=== PATIENT | female | born 2000 | race Hispanic/Latino ===

== ENCOUNTER 2021-09-08 17:16 | Emergency (ER) | payer OTHER ==
[2021-09-08] MEDS ORDERED: Acetaminophen 500 MG TAB ONE (19:03)
[2021-09-08] MEDS ORDERED: Ketorolac Tromethamine 30 MG/ML VIAL ONE (19:03)
[2021-09-08 19:15] LABS: Bilirubin Neg (Negative); Blood, Urine 10 (Negative); Clarity Clear (Clear); Glucose, Urine (Dipstick) Normal (Negative); Ketone, Urine Negative (Negative); Leukocyte Negative (Negative); Nitrite Negative (Negative); Protein, Urine (Dipstick) Negative (Neg-Trace); Specific Gravity, Urine 1.015 (1.002-1.036); Urobilinogen Normal mg/dL (Less than 2)
[2021-09-08 19:19] LABS: Pregnancy Test - Urine (BHCG) Negative (Negative); Pregu Control Background? CLEAR/WHITE (CLR/WHITE); Pregu Control Bar Appear? YES (CONTROL BAR); Specific Gravity 1.015 (1.002-1.036)
[2021-09-08 19:24] LABS: Squamous Epithelial 0-3 HPF (0-3)
[2021-09-08 19:25] LABS: Bacteria/HPF Rare-Few HPF (None Seen); RBC/HPF 0-3 HPF (0-3); WBC/HPF 0-3 HPF (0-3)
== END 2021-09-08 19:29 | disposition home or self-care (01) ==
LOC: CSHERS 17:16
DX: R51.9 Headache, unspecified (principal); M54.50 Low back pain, unspecified; G89.29 Other chronic pain; W21.00XA Struck by hit or thrown ball, unspecified type, initial encounter; Y92.79 Other farm location as the place of occurrence of the external cause
CPT/HCPCS: 81003; 81015; 81025; 96372; 99284; J1885

== ENCOUNTER 2022-01-20 16:57 | Emergency (ER) | payer OTHER | END 2022-01-20 18:46 | disposition home or self-care (01) | LOC: CSHERS 16:57 | DX: R51.9 Headache, unspecified (principal) | CPT/HCPCS: 99283 ==

== ENCOUNTER 2022-05-07 15:18 | Emergency (ER) | payer OTHER ==
[2022-05-07 17:24] LABS: Bilirubin Neg (Negative); Blood, Urine 10 (Negative); Clarity Cloudy (Clear); Glucose, Urine (Dipstick) Normal (Negative); Ketone, Urine Negative (Negative); Leukocyte Negative (Negative); Nitrite Negative (Negative); Protein, Urine (Dipstick) 15 mg/dl (Neg-Trace); Specific Gravity, Urine 1.025 (1.005-1.030); Urobilinogen Normal mg/dL (Less than 2)
[2022-05-07 17:28] LABS: Pregnancy Test - Urine (BHCG) POSITIVE (Negative); Pregu Control Background? CLEAR/WHITE (CLR/WHITE); Pregu Control Bar Appear? YES (CONTROL BAR); Specific Gravity 1.025 (1.002-1.036)
[2022-05-07 17:38] LABS: Mucous/LPF 3+ LPF (<2+); RBC/HPF 0-3 HPF (0-3); WBC/HPF 0-3 HPF (0-3)
[2022-05-07 17:39] LABS: Bacteria/HPF 1+ HPF (None Seen)
[2022-05-07 18:21] LABS: #Basophils 0.1 10x3/uL (0.0-0.2); #Eosinphils 0.4 10x3/uL (0.0-0.5); #Neutrophils 9.8 10x3/uL (1.5-8.4); %Basophils 0.5 % (0.0-2.0); %Eosinophils 2.9 % (0.0-6.0); %Lymphocytes 22.1 % (18.0-47.0); %Monocytes 6.8 % (0.0-10.0); %Neutrophils 67.4 % (40.0-75.0); Mean Corpuscular HGB CONC 31.9 g/dL (32.0-36.0); Mean Corpuscular Hemoglobin 27.7 pg (27.0-33.0); Mean Corpuscular Volume 86.6 fl (81.6-98.3); Mean Platelet Volume 8.6 fl (7.4-10.4); Platelet Count 452 10x3/uL (150-450); RBC Distribution Width 14.7 % (11.5-14.5); White Blood Cell (WBC) Count 14.6 10x3/uL (3.5-10.5)
[2022-05-07 18:36] LABS: ALT (SGPT) 20 U/L (8-55); AST (SGOT) 15 U/L (5-34); Albumin 3.8 g/dL (3.5-5.0); Alkaline Phosphatase 71 U/L (40-110); Anion Gap 11 mmol/L (10-20); BUN (Urea Nitrogen) 10 mg/dL (7.0-18.7); Bilirubin, Total 0.4 mg/dL (0.2-1.2); Calc. Creatinine Clearance 0 mL/min (70-130); Calcium 9.6 mg/dL (7.8-10.44); Carbon Dioxide 24 mmol/L (22-29); Chloride 104 mmol/L (98-107); Estimated GFR 118; Globulin 4.6 g/dL (2.4-3.5); Glucose 81 mg/dL (70-105); Potassium 3.9 mmol/L (3.5-5.1); Protein, Total 8.4 g/dL (6.0-8.3); Sodium 135 mmol/L (136-145)
[2022-05-08 12:42] LABS: Chlamydia by PCR Not Detected (NotDetected); GC by PCR Not Detected (NotDetected)
== END 2022-05-07 19:22 | disposition home or self-care (01) ==
LOC: CSHERS 15:18
DX: O99.891 Other specified diseases and conditions complicating pregnancy (principal); R82.71 Bacteriuria; Z3A.01 Less than 8 weeks gestation of pregnancy
CPT/HCPCS: 76856; 80053; 81003; 81015; 81025; 84702; 85025; 87480; 87491; 87510; 87591; 87660

== ENCOUNTER 2022-05-18 22:13 | Emergency (ER) | payer OTHER ==
[2022-05-18] MEDS ORDERED: Lidocaine 1% (PF) 30 ML VIAL ONE (23:09)
== END 2022-05-18 23:45 | disposition home or self-care (01) ==
LOC: CSHERS 22:13 → EEVIPCON 22:13 → CSHERS 23:45
DX: K08.89 Other specified disorders of teeth and supporting structures (principal)
CPT/HCPCS: 64400; J2001

== ENCOUNTER 2022-06-06 04:30 | Emergency (ER) | payer OTHER ==
[2022-06-06] MEDS ORDERED: Ketorolac Tromethamine 30 MG/ML VIAL ONE (05:26)
[2022-06-06] MEDS ORDERED: HYDROcodone/Acetaminophen 5/325 mg Tablet ONE (05:27)
== END 2022-06-06 06:48 | disposition home or self-care (01) ==
LOC: CSHERS 04:30
DX: K08.89 Other specified disorders of teeth and supporting structures (principal)
CPT/HCPCS: 96372; 99282; J1885

== ENCOUNTER 2022-06-16 12:53 | Emergency (ER) | payer OTHER ==
[2022-06-16] MEDS ORDERED: Acetaminophen 500 MG TAB ONE (13:33)
[2022-06-16] MEDS ORDERED: Metoclopramide HCl 10 MG TAB ONE (13:33)
== END 2022-06-16 14:00 | disposition home or self-care (01) ==
LOC: CSHERS 12:53
DX: O26.891 Other specified pregnancy related conditions, first trimester (principal); Z3A.13 13 weeks gestation of pregnancy
CPT/HCPCS: 36416; 99284

== ENCOUNTER 2024-04-27 07:58 | Emergency (ER) | payer OTHER ==
[2024-04-27] MEDS ORDERED: Lidocaine 1% w/Epinephrine 1:200K 30 ML VIAL ONE (08:24)
== END 2024-04-27 09:04 | disposition home or self-care (01) ==
LOC: CSHERS 07:58
DX: O99.712 Diseases of the skin and subcutaneous tissue complicating pregnancy, second trimester (principal); L05.01 Pilonidal cyst with abscess; Z3A.18 18 weeks gestation of pregnancy
CPT/HCPCS: 10080